=== PATIENT | female | born 1990 | race Two or more races ===

== ENCOUNTER 2024-06-14 13:42 | Inpatient (IN) | payer OTHER ==
[~2024-06-14] VITALS: Ht 165.1 cm; Wt 2.7 kg
[2024-06-14 13:18] LABS: HEMATOCRIT 39.1 % (36.0-45.00); HEMOGLOBIN 13.4 g/dL (12.0-15.00); MEAN CELL VOLUME 92.8 fL (80.00-100.00); MEAN CORPUSCULAR HEMOGLOBIN 31.8 pg (27.00-32.0); MEAN CORPUSCULAR HGB CONC 34.2 g/dl (32.0-36.0); PLATELET COUNT 196 K/uL (150-450); RED BLOOD COUNT 4.21 M/uL (4.00-6.00); RED CELL DISTRIBUTION WIDTH 13.2 % (11.5-14.5)
[~2024-06-14 13:42] MED LIST: PRENATABS RX T1 EACH PO; ZOLOFT25 MG PO
[2024-06-14 14:04] LABS: INR 0.97; PARTIAL THROMBOPLASTIN TIME 26.2 SECONDS (22.0-34.0); PROTHROMBIN TIME 10.6 SECONDS (9.0-11.5)
[2024-06-14 14:26] LABS: BILIRUBIN TOTAL 0.38 mg/dL (0.3-1.2); CALCIUM 9.2 mg/dL (8.5-10.1); CREATININE SERUM 0.59 mg/dL (0.55-1.02); GFR 116.68; GLOBULINA 3.4 G/DL (2.4-3.5); POTASSIUM 4.43 mEq/L (3.5-5.1); TOTAL PROTEIN 6.4 gm/dL (6.4-8.2)
[2024-06-22 06:09] VITALS: BP 123/81
[2024-06-22] MEDS ORDERED: OXYTOCIN 10 UNITS/ML VIAL ONE ×2 (06:55→10:41)
[2024-06-22] MEDS ORDERED: ERYTHROMYCIN BASE OPHT 1GM EACH TUBE OP ONE (06:55)
[2024-06-22] MEDS ORDERED: CITRIC ACID/SODIUM CITRATE 30 ML BLIST.PACK PO ONE (07:21)
[2024-06-22] MEDS ORDERED: CEFAZOLIN SODIUM 1,000 MG VIAL ONE (07:22)
[2024-06-22] MEDS ORDERED: MORPHINE SULFATE 4 MG/ML CARTRIDGE IV PRN (09:30)
[2024-06-22] MEDS ORDERED: OXYTOCIN 1,000 ML IV SCH (09:30)
[2024-06-22] MEDS ORDERED: MORPHINE SULFATE 4 MG/ML VIAL IV ONE (10:00)
[2024-06-22 11:10] VITALS: BP 119/69
[2024-06-22] MEDS ORDERED: KETOROLAC TROMETHAMINE 30 MG VIAL IV SCH (13:30)
[2024-06-22] MEDS ORDERED: PROMETHAZINE HCL 25 MG/ML AMPUL IV PRN (13:30)
[2024-06-22] MEDS ORDERED: MEPERIDINE HCL/PF 25 MG/ML VIAL IV PRN (13:30)
[2024-06-22] MEDS ORDERED: SIMETHICONE 125 MG CAPSULE PO SCH (17:00)
[2024-06-22] MEDS ORDERED: DOCUSATE SODIUM 100MG CAP PO SCH (17:00)
[2024-06-22 21:15] VITALS: BP 120/71
[2024-06-23] VITALS: BP 118/75
[2024-06-23 08:00] VITALS: BP 127/71
[2024-06-23] MEDS ORDERED: IBUprofen 400 MG TABLET PO SCH (09:00)
[2024-06-23 09:36] LABS: HEMATOCRIT 31.1 % (36.0-45.00); HEMOGLOBIN 10.9 g/dL (12.0-15.00); MEAN CELL VOLUME 91.7 fL (80.00-100.00); MEAN CORPUSCULAR HEMOGLOBIN 32.1 pg (27.00-32.0); PLATELET COUNT 141 K/uL (150-450); RED BLOOD COUNT 3.39 M/uL (4.00-6.00); RED CELL DISTRIBUTION WIDTH 13.8 % (11.5-14.5)
[2024-06-23 16:00] VITALS: BP 118/78
[2024-06-24 00:36] VITALS: BP 110/70
[2024-06-24] MEDS ORDERED: OxyCODONE HCL 5 MG TABLET (ROXICODONE) PO PRN (06:00)
[2024-06-24 08:00] VITALS: BP 123/76
[2024-06-24] MEDS ORDERED: IBUprofen 400 MG TABLET PO SCH (09:00)
[2024-06-24 15:02] VITALS: BP 122/80
[2024-06-25 00:28] VITALS: BP 121/82
[2024-06-25 08:25] VITALS: BP 127/76
[2024-06-25] MEDS ORDERED: KETO10TA2 PO (09:44)
[2024-06-25] MEDS ORDERED: PERCOCET 5-3251 EACH PO (09:45)
== END 2024-06-25 15:18 | disposition home or self-care (01) | DRG 788 ==
LOC: OB/GYN 06-22 05:30 → O/R 06-22 05:30 → OB/GYN 06-22 08:56 → LDR 06-22 12:20 → OB/GYN 06-25 15:18
PROVIDERS: ADMIT Obstetrics & Gynecology; ATTEND Obstetrics & Gynecology
PROC: 4A1HXCZ Monitoring of Products of Conception, Cardiac Rate, External Approach (ICD-10-PCS; 2024-06-22)
PROC: 10D00Z1 Extraction of Products of Conception, Low, Open Approach (ICD-10-PCS; principal; 2024-06-22 18:15)
DX: O32.1XX0 Maternal care for breech presentation, not applicable or unspecified (principal); Z3A.39 39 weeks gestation of pregnancy; Z37.0 Single live birth